=== PATIENT | male | born 1965 | race African-American/Black ===

== ENCOUNTER 2021-06-06 19:13 | Emergency (ER) | payer MEDICAID, OTHER ==
[~2021-06-06] VITALS: Ht 177.8 cm; Wt 99.8 kg
[2021-06-06 20:00] VITALS: BP 163/96
[2021-06-06] MEDS ORDERED: LIDOCAINE 1% (LOCAL ANESTH.) PF 5ml SDV ID ONE (20:00)
[2021-06-06] MEDS ORDERED: IOHEXOL 300 MG/ML 100ML BOTTLE IJ ONE (20:10)
[2021-06-07 00:17] LABS: Basophils # (auto) 0 10 ^3/uL (0-0.2); Basophils % (auto) 0.4 % (0.0-2.0); Eosinophils # (auto) 0 10 ^3/uL (0-0.8); Eosinophils % (auto) 0.2 % (0.0-7.0); Hematocrit 43.5 % (41.0-53.0); Hemoglobin 14.6 g/dL (13.5-17.5); Lymphocytes # (auto) 2.2 10 ^3/uL (0.4-5.4); Lymphocytes % (auto) 25.8 % (10.0-50.0); Mean Corpuscular Hemoglobin 29.3 pg (28.0-32.0); Mean Corpuscular Hgb Conc. 33.6 g/dL (32.0-36.0); Mean Corpuscular Volume 87.3 fL (80.0-100.0); Monocytes # (auto) 0.6 10 ^3/uL (0-1.3); Monocytes % (auto) 7.2 % (0.0-12.0); Neutrophils # (auto) 5.5 10 ^3/uL (1.6-8.6); Neutrophils % (auto) 66.4 % (37.0-80.0); Nucleated Red Blood Cells % 0.1 %; Red Blood Cells 4.99 10^6/uL (4.5-5.90); Red Cell Distribution Width 14.3 % (11.8-14.3); White Blood Cell 8.3 10^3/uL (4.4-10.8)
[2021-06-07 00:45] LABS: Albumin 4.5 g/dL (3.4-5.0); BUN/Creatinine Ratio 13.3; Calcium 9.3 mg/dL (8.5-10.1); Potassium 4.1 mmol/L (3.5-5.1)
[2021-06-07 00:47] LABS: Bilirubin, Total 0.6 mg/dL (0.2-1.0); Total Protein 8.2 g/dL (6.4-8.2)
[2021-06-07 00:54] LABS: INR 1.03 (0.9-1.15); Partial Thromboplastin Time 27.4 sec (23.6-33.0)
[2021-06-07] MEDS ORDERED: HYDROcodone-ACET 5/325MG TAB PO ONE (03:00)
[2021-06-07] MEDS ORDERED: TETANUS-DIPTH-ACEL PERTUSSIS 0.5ML SYR Tdap IM ONE (03:00)
== END 2021-06-07 03:16 | disposition home or self-care (01) ==
LOC: EDBD 19:13 → ER 19:13
DX: S61.411A Laceration without foreign body of right hand, initial encounter (principal); F17.210 Nicotine dependence, cigarettes, uncomplicated; Z88.0 Allergy status to penicillin; Y04.2XXA Assault by strike against or bumped into by another person, initial encounter; Y93.89 Activity, other specified; Y92.89 Other specified places as the place of occurrence of the external cause; Y99.8 Other external cause status
CPT/HCPCS: 36415; 70450; 70486; 71260; 72125; 74177; 80053; 85025; 85610; 85730; 90471; 90715; 93005; 99285; Q9967

== ENCOUNTER 2022-04-27 11:40 | Emergency (ER) | payer MEDICAID ==
[~2022-04-27] VITALS: Ht 175.3 cm; Wt 89.9 kg
[2022-04-27 11:53] VITALS: BP 119/82
== END 2022-04-27 17:00 | disposition left against medical advice (07) ==
LOC: ER 11:40
DX: M79.672 Pain in left foot (principal); Z53.21 Procedure and treatment not carried out due to patient leaving prior to being seen by health care provider

== ENCOUNTER 2023-03-31 09:45 | Inpatient (IN) | payer MEDICAID ==
[~2023-03-31] VITALS: Ht 172.7 cm; Wt 85.9 kg
[2023-03-31 10:18] LABS: Basophils # (auto) 0 10 ^3/uL (0-0.2); Eosinophils # (auto) 0 10 ^3/uL (0-0.8); Eosinophils % (auto) 0.8 % (0.0-7.0); Hematocrit 44.6 % (41.0-53.0); Hemoglobin 14.6 g/dL (13.5-17.5); Lymphocytes # (auto) 2.1 10 ^3/uL (0.4-5.4); Lymphocytes % (auto) 53.1 % (10.0-50.0); Mean Corpuscular Hemoglobin 28.7 pg (28.0-32.0); Mean Corpuscular Hgb Conc. 32.8 g/dL (32.0-36.0); Mean Corpuscular Volume 87.5 fL (80.0-100.0); Monocytes # (auto) 0.2 10 ^3/uL (0-1.3); Monocytes % (auto) 5.8 % (0.0-12.0); Neutrophils # (auto) 1.6 10 ^3/uL (1.6-8.6); Neutrophils % (auto) 39.3 % (37.0-80.0); Nucleated Red Blood Cells % 0.1 %; Red Blood Cells 5.09 10^6/uL (4.5-5.90); Red Cell Distribution Width 13.6 % (11.8-14.3)
[2023-03-31 11:10] LABS: Alanine Aminotransferase 34 U/L (7-40); Albumin 4.8 g/dL (3.2-4.8); Alkaline Phosphatase 79 U/L (46-116); Anion Gap 7.6 (5-15); Aspartate Aminotransferase 24 U/L (13-40); Bilirubin, Total 0.9 mg/dL (0.2-1.0); Blood Urea Nitrogen 10 mg/dL (9-23); Calcium 9.3 mg/dL (8.5-10.1); Carbon Dioxide 25.4 mmol/L (20-30); Chloride 107 mmol/L (98-107); Glucose 109 mg/dL (74-106); Potassium 3.6 mmol/L (3.5-5.1); Sodium 140 mmol/L (136-145); Total Protein 7.1 g/dL (5.7-8.2)
[2023-03-31 11:13] LABS: Urine WBC None Seen /hpf (0 - 3)
[2023-03-31 11:36] LABS: Urine Bacteria NONE SEEN /hpf (None Seen); Urine Blood Negative /uL (Negative); Urine Clarity Clear (Clear); Urine Color Yellow (Yellow); Urine Mucus FEW (None Seen); Urine Protein, UAD Negative (Negative); Urine Specific Gravity 1.016 (1.001-1.035); Urine Urobilinogen Normal (Negative); Urine pH 5.5 (5.0-8.0)
[2023-03-31 13:54] LABS: Amphetamine Screen, Urine Neg (NEGATIVE); Barbiturate Scree,Urine Neg (NEGATIVE); Benzodiazephine Screen, Urine Neg (NEGATIVE); Cocaine Screen, Urine Neg (NEGATIVE); Opiate Scree,Urine Neg (NEGATIVE)
[2023-03-31 13:55] LABS: Cannabinoid Screen, Urine Pos (NEGATIVE); Phencyclidine Screen, Urine Pos (NEGATIVE)
[2023-03-31] MEDS ORDERED: ACETAMINOPHEN 325 MG TAB PO PRN (16:00)
[2023-03-31] MEDS ORDERED: LORazepam 2MG/ML-1ML VIAL IV PRN (16:30)
[2023-03-31 17:15] LABS: INR 1.06 (0.9-1.15); Prothrombin Time 11.1 sec (9.3-11.8)
[2023-03-31 17:31] LABS: Triglycerides 63 mg/dL (< 150)
[2023-03-31 17:32] LABS: Blood Alcohol < 3.0 mg/dL (<10); Creatine Kinase IFCC 329 U/L (46-171); LDL Cholesterol 85 mg/dL (< 100); Magnesium 2.1 mg/dL (1.6-2.6)
[2023-03-31 17:33] LABS: Cholesterol 158 mg/dL (< 200); HDL Cholesterol 63 mg/dL (40-59); Phosphorus 3.1 mg/dL (2.4-5.1)
[2023-03-31 17:49] LABS: Erythrocyte Sedimentation Rate 2 mm/hr (0-20)
[2023-03-31] MEDS: chlordiazePOXIDE HCL 25 MG CAP PO SCH (21:31)
[2023-03-31 21:37] VITALS: BP 153/96; PULSE 71; RESP 16; TEMP 98.2; O2SAT 97
[2023-03-31] MEDS ORDERED: ATORVASTATIN 20 MG TAB PO SCH (22:00)
[2023-03-31] MEDS ORDERED: levETIRAcetam 500 MG/5ML INJ IV ONE (22:57)
[2023-04-01] MEDS: chlordiazePOXIDE HCL 25 MG CAP PO SCH (00:41)
[2023-04-01] MEDS ORDERED: chlordiazePOXIDE HCL 25 MG CAP PO SCH (10:00)
[2023-04-01] MEDS ORDERED: ASPirin 81 mg TAB PO SCH (10:00)
[2023-04-01] MEDS ORDERED: LISINOPRIL 10 MG TAB PO SCH (10:00)
[2023-04-01] MEDS ORDERED: FOLIC ACID 1 MG, MULTIPLE VITAMIN 10 ML, MAGNESIUM SULF SDV 50% 8 MEQ, THIAMINE INJ 100... INJ SCH ×5 (12:00)
[2023-04-02 07:07] LABS: RPR Non Reactive (Non Reactive)
[2023-04-02 08:06] LABS: Homocyst(e)ine 14.2 umol/L (0.0-14.5)
[2023-04-02] MEDS ORDERED: chlordiazePOXIDE HCL 25 MG CAP PO SCH (10:00)
[2023-04-03] MEDS ORDERED: chlordiazePOXIDE HCL 25 MG CAP PO SCH (07:00)
== END 2023-04-01 02:58 | disposition left against medical advice (07) | DRG 204 ==
LOC: ER 09:45 → TELE 16:06
PROVIDERS: ADMIT Nurse Practitioner Family; ATTEND Nurse Practitioner Family
DX: R55 Syncope and collapse (principal); S09.90XA Unspecified injury of head, initial encounter; R56.9 Unspecified convulsions; F10.10 Alcohol abuse, uncomplicated; Z53.29 Procedure and treatment not carried out because of patient's decision for other reasons; F17.210 Nicotine dependence, cigarettes, uncomplicated; W18.39XA Other fall on same level, initial encounter; Z86.61 Personal history of infections of the central nervous system; Z89.021 Acquired absence of right finger(s); Z88.0 Allergy status to penicillin; Y93.89 Activity, other specified; Y92.89 Other specified places as the place of occurrence of the external cause; Y99.8 Other external cause status
CPT/HCPCS: 36415; 70450; 72125; 80053; 80061; 80307; 80320; 81001; 82550; 83090; 83605; 83735; 83880; 84100; 84439; 84443; 84484; 85025; 85610; 85652; 86592; 93005; 93886; G0378; J7060